=== PATIENT | female | born 1970 | race Caucasian/White ===

== ENCOUNTER 2020-09-16 16:37 | Emergency (ER) | payer MEDICARE ==
[~2020-09-16] VITALS: Ht 152.4 cm; Wt 82.7 kg
[~2020-09-16 16:37] MED LIST: ASPIRIN81 MG PO; DIFLUCAN100 MG PO; GLIMEPIRIDE1 MG PO; KEFLEX500 MG PO; LISINOPRIL2.5 MG PO; MACROBID100 MG PO; PLAVIX75 MG PO; TEGRETOL 100 M100 MG PO; TOPROL XL50 MG PO; ZOCOR10 MG PO
[2020-09-16 16:43] VITALS: Ht 152.4 cm; Wt 82.7 kg
[2020-09-16 17:15] LABS: BASOPHILS 0.6 % (0-2); EOSINOPHILS 2.6 % (0-7); HEMATOCRIT 35.6 % (36.0-48.0); HEMOGLOBIN 12.3 g/dL (12-16); IMMATURE GRANULOCYTES 0.4 % (0-5); LYMPHOCYTE ABS# 2.41 10x3/uL (1.18-3.74); LYMPHOCYTES 19.2 % (15-50); MCH 29.5 pg (26.0-34.0); MCHC 34.6 g/dL (31.0-37.0); MCV 85.4 fL (80.0-100.0); MEAN PLATELET VOLUME 9.9 fL (7.4-10.4); MONOCYTES 5.5 % (2-11); NEUTROPHIL ABS# 8.98 10x3/uL (1.56-6.13); NEUTROPHILS 71.7 % (40-80); PLATELET COUNT 228 10x3/uL (130-400); RBC 4.17 10x6/uL (4.00-5.40); RDW 13.2 % (11.5-14.5); WBC 12.5 10x3/uL (4.8-10.8)
[2020-09-16 17:26] LABS: ANION GAP 17.7 mmol/L (8-16); CALCIUM 8.9 mg/dL (8.5-10.1); CARBON DIOXIDE 24.8 mmol/L (21.0-32.0); CREATININE - SERUM 1.5 mg/dL (0.6-1.3); POTASSIUM - SERUM 3.5 mmol/L (3.5-5.1)
[2020-09-16 17:33] LABS: ALBUMIN 3.3 g/dL (3.4-5.0); BILIRUBIN - TOTAL 0.18 mg/dL (0.2-1.3); PROTEIN - SERUM 8.2 g/dL (6.4-8.2)
[2020-09-16 18:47] LABS: BILIRUBIN NEGATIVE (NEGATIVE); KETONE NEGATIVE (NEGATIVE); NITRITE NEGATIVE (NEGATIVE); UROBILINOGEN NORMAL mg/dL (< 2)
[2020-09-16 18:48] LABS: SQUAMOUS EPITHELIAL 0-5 HPF (0-4); WHITE CELLS - URINE NONE SEEN HPF (0-4)
[2020-09-16 18:49] LABS: BACTERIA FEW HPF (NONE SEEN)
[2020-09-16] MEDS ORDERED: MACROBID100 MG PO (19:03)
[2020-09-16 19:19] VITALS: BP 148/96
== END 2020-09-16 19:37 | disposition home or self-care (01) ==
LOC: D.ER 16:37
PROVIDERS: Family Medicine
DX: E11.649 Type 2 diabetes mellitus with hypoglycemia without coma (principal); N39.0 Urinary tract infection, site not specified; I10 Essential (primary) hypertension; Z79.84 Long term (current) use of oral hypoglycemic drugs

== ENCOUNTER → 2020-11-05 15:45 | Outpatient (CLI) | payer MEDICARE ==
[2020-09-16 16:43] VITALS: BMI 35.6
== END | disposition home or self-care (01) ==
LOC: D.MAMMO 15:45
PROVIDERS: ATTEND Clinical Nurse Specialist Adult Health
DX: Z12.31 Encounter for screening mammogram for malignant neoplasm of breast (principal)